=== PATIENT | male | born 1995 ===

== ENCOUNTER 2020-10-13 23:28 | Emergency (ER) | payer SELFPAY ==
[2020-10-13] MEDS ORDERED: Acetaminophen 500 MG TAB ONE (23:57)
[2020-10-13] MEDS ORDERED: diphenhydrAMINE 25 MG CAP ONE (23:57)
[2020-10-13] MEDS ORDERED: Metoclopramide HCl 10 MG TAB ONE (23:58)
== END 2020-10-14 00:11 | disposition home or self-care (01) ==
LOC: ERS 23:28
DX: R51.9 Headache, unspecified (principal)
CPT/HCPCS: 99283; Q0163